=== PATIENT | female | born 1995 | race Caucasian/White ===

== ENCOUNTER 2018-05-19 20:56 | Day surgery (SDC) | payer OTHER ==
[~2018-05-19] VITALS: Ht 165.1 cm; Wt 59.9 kg
== END 2018-05-20 03:00 | disposition home or self-care (01) ==
LOC: ER 20:56 → CIR.AMB 21:51 → PRE-ADM 21:51 → CIR.AMB 05-20 03:00
DX: O02.1 Missed abortion (principal); Z3A.10 10 weeks gestation of pregnancy